=== PATIENT | female | born 1995 | race Caucasian/White ===

== ENCOUNTER 2017-01-06 11:29 | Emergency (ER) | payer OTHER ==
[2017-01-06 11:50] VITALS: BP 120/67
--- NOTE | 2017-01-06 12:39 | ED ---
Lower Extremity - HPI Summary HPI Summary: Pt here w/ Rt ankle pain since rolling last night. Swelling and pain - worse w/ weight bearing. Has tried ice, heat and ibuprofen. Denies numbness, tingling, weakness. H/o ankle fx on Lt - concerned about similar injury here. - History of Current Complaint Chief Complaint: EDExtremityLower Stated Complaint: RIGHT ANKLE INJURY Time Seen by Provider: 01/06/17 12:06 Hx Obtained From: Patient Pain Intensity: 8 - Allergies/Home Medications Allergies/Adverse Reactions: Allergies Allergy/AdvReac Type Severity Reaction Status Date / Time Cefprozil [From Cefzil] Allergy Airway Verified 01/06/17 11:42 Obstruction Home Medications: Home Medications Methylphenidate HCl [Concerta] 63 mg PO DAILY 01/06/17 [History Confirmed ] PMH/Surg Hx/FS Hx/Imm Hx Previously Healthy: Yes Endocrine/Hematology History: Denies: Hx Anticoagulant Therapy, Hx Blood Disorders Infectious Disease History: No Infectious Disease History: Denies: Traveled Outside the [place] in Last 30 Days - Family History Known Family History: Positive: None - Social History Occupation: Student Lives: With Family - roommate Alcohol Use: Occasionally Alcohol Amount: 4/week Substance Use Type: Reports: Prescribed Hx Tobacco Use: No Smoking Status (MU): Never Smoked Tobacco Review of Systems Constitutional: Negative Negative: Fever, Chills Negative: Chest Pain Negative: Shortness Of Breath Negative: Vomiting, Nausea Positive: no symptoms reported Musculoskeletal: Other - see HPI Skin: Other - see HPI Neurological: Negative Negative: Weakness, Paresthesia, Numbness Psychological: Normal All Other Systems Reviewed And Are Negative: Yes Physical Exam Triage Information Reviewed: Yes Vital Signs On Initial Exam: Initial Vitals Temp Pulse Resp BP Pulse Ox 97.6 F 92 20 137/78 99 01/06/17 11:31 01/06/17 11:31 01/06/17 11:31 01/06/17 11:31 01/06/17 11:31 Vital Signs Reviewed: Yes Appearance: Positive: Well-Appearing, No Pain Distress - ar rest - uncomfortable w/ FROM Rt ankle, Well-Nourished Skin: Positive: Warm, Dry - mild ecchymosis over edema of Rt lateral ankle - no open wounds Head/Face: Positive: Normal Head/Face Inspection Eyes: Positive: EOMI ENT: Positive: Hearing grossly normal Respiratory/Lung Sounds: Positive: Breath Sounds Present Cardiovascular: Positive: Pulses are Symmetrical in both Upper and Lower Extremities Musculoskeletal: Positive: Strength/ROM Intact, Pain @ - Rt lateral malleolus and Rt base of 5th MT Neurological: Positive: Normal, Sensory/Motor Intact, Alert, Oriented to Person Place, Time, CN Intact II-III Psychiatric: Positive: Normal Diagnostics - Vital Signs Vital Signs Temp Pulse Resp BP Pulse Ox 01/06/17 11:39 97.6 F 95 18 120/67 100 01/06/17 11:31 97.6 F 92 20 137/78 99 - Laboratory Lab Statement: Any lab studies that have been ordered have been reviewed, and results considered in the medical decision making process. Lower Extremity Course/Dx - Diagnoses Provider Diagnoses: Right ankle sprain Discharge - Discharge Plan Condition: Stable Disposition: HOME Patient Education Materials: Ankle Sprain (ED), Ankle Stirrup Splint (ED), Crutch Instructions (ED) Referrals: [facility] [Outside] Additional Instructions: Rest, ice, compress with LOREZNO wrap and elevate Use crutches to avoid weight bearing until tolerated You may take ibuprofen with food to help with pain and swelling Follow-up with PCP if pain persists or worsens
--- NOTE | 2017-01-06 12:45 | RAD ---
INDICATION: Right ankle injury. TECHNIQUE: 3 views of the right ankle were obtained. FINDINGS: Soft tissue swelling is noted along the anterolateral aspect of the ankle. No fracture is seen. Joint spaces appear maintained. IMPRESSION: SOFT TISSUE SWELLING, NO FRACTURE IS SEEN.
--- NOTE | 2017-01-06 12:46 | RAD ---
INDICATION: Right foot injury. TECHNIQUE: 3 views of the right foot were obtained. FINDINGS: The bones are in normal alignment. No fracture is seen. Joint spaces appear maintained. IMPRESSION: NO EVIDENCE FOR FRACTURE.
== END 2017-01-06 13:10 | disposition home or self-care (01) ==
LOC: ED 11:29
DX: S93.491A Sprain of other ligament of right ankle, initial encounter (principal); X58.XXXA Exposure to other specified factors, initial encounter; Y93.9 Activity, unspecified; Y92.89 Other specified places as the place of occurrence of the external cause
CPT/HCPCS: 99282